=== PATIENT | female | born 1960 | race Caucasian/White ===

== ENCOUNTER 2022-11-07 15:06 | Emergency (ER) | payer OTHER ==
[2022-11-07] MEDS ORDERED: Fentanyl 100 MCG/2 ML VIAL ONE (16:46)
[2022-11-07] MEDS ORDERED: Dexamethasone 10 MG/ML VIAL ONE (16:47)
[2022-11-07] MEDS ORDERED: LORazepam 2 MG/ML SYR.(CARPUJECT) ONE (16:47)
[2022-11-07] MEDS ORDERED: Ketorolac Tromethamine 30 MG/ML VIAL ONE (16:47)
== END 2022-11-07 18:33 | disposition home or self-care (01) ==
LOC: ERS 15:06
DX: M54.12 Radiculopathy, cervical region (principal); I10 Essential (primary) hypertension
CPT/HCPCS: 72125; 96374; 96375; J1100; J1885; J2060; J3010